=== PATIENT | female | born 1975 ===

== ENCOUNTER 2016-08-21 13:03 | Emergency (ER) | payer MEDICAID ==
[2016-08-21 13:08] VITALS: BMI 22.0
--- NOTE | 2016-08-21 13:43 | C.PDOC ---
History Of Present Illness 41 y/o female presents to ED with complaints of sinus congestion, sore throat and asthma exacerbation for 4 days. Patient has no asthma medication and feels "wheezy and tight". Patient denies fever, chills, N/V/D or any other complaints at this time. Time Seen by Provider: 08/21/16 13:19 Chief Complaint (Nursing): Flu-like Symptoms History Per: Patient History/Exam Limitations: no limitations Onset/Duration Of Symptoms: Days Current Symptoms Are (Timing): Still Present Associated Symptoms: Sore Throat, Nasal Congestion. denies: Fever, Vomiting, Diarrhea Past Medical History Reviewed: Historical Data, Nursing Documentation, Vital Signs Vital Signs: Last Vital Signs Temp 99.0 F 08/21/16 13:08 Pulse 77 08/21/16 13:08 Resp 20 08/21/16 13:08 BP 100/67 08/21/16 13:08 Pulse Ox 99 08/21/16 13:57 - Medical History PMH: Asthma, Depression, Gastritis Surgical History: Tonsillectomy Family History: States: Unknown Family Hx - Social History Hx Tobacco Use: Yes Hx Alcohol Use: No Hx Substance Use: No - Immunization History Hx Influenza Vaccination: Yes Hx Pneumococcal Vaccination: Yes Review Of Systems Except As Marked, All Systems Reviewed And Found Negative. Constitutional: Negative for: Fever, Chills ENT: Positive for: Nose Congestion, Throat Swelling Cardiovascular: Negative for: Chest Pain Respiratory: Positive for: Shortness of Breath, Wheezing Gastrointestinal: Negative for: Nausea, Vomiting, Diarrhea Skin: Negative for: Rash Physical Exam - Physical Exam Appears: Non-toxic, No Acute Distress Skin: Normal Color, Warm Head: Atraumatic, Normacephalic Eye(s): bilateral: Normal Inspection Nose: Other (sinus congestion) Cardiovascular: Rhythm Regular, No Murmur Respiratory: Decreased Breath Sounds (Bilateral Decreased breath sounds), No Rales, No Rhonchi, Wheezing (Bilat occasional wheezing) Gastrointestinal/Abdominal: Soft, No Tenderness, No Guarding, No Rebound Extremity: Normal ROM, Capillary Refill (<2 seconds) Neurological/Psych: Oriented x3, Normal Speech, Normal Cognition ED Course And Treatment O2 Sat by Pulse Oximetry: 99 (RA) Pulse Ox Interpretation: Normal Reevaluation Time: 14:54 Reassessment Condition: Improved Disposition Counseled Patient/Family Regarding: Diagnosis, Need For Followup, Rx Given - Disposition Referrals: Count Includes [facility] [Outside] [facility] [Outside] Disposition: HOME/ ROUTINE Disposition Time: 14:54 Condition: IMPROVED Prescriptions: Albuterol HFA [Ventolin HFA 90 mcg/actuation (8 g)] 1 puff IH Q4 #1 inhaler predniSONE [Prednisone] 60 mg PO DAILY #12 tab Instructions: Asthma (ED), Upper Respiratory Infection (ED) Forms: Work Excuse - Clinical Impression Clinical Impression: URI (upper respiratory infection), Asthma exacerbation - PA / [employer] / Resident Statement MD/DO has reviewed & agrees with the documentation as recorded. MD/DO has examined the patient and agrees with the treatment plan. - Scribe Statement The provider has reviewed the documentation as recorded by the Felicianoibleo Colon All medical record entries made by the Josesito were at my direction and personally dictated by me. I have reviewed the chart and agree that the record accurately reflects my personal performance of the history, physical exam, medical decision making, and the department course for this patient. I have also personally directed, reviewed, and agree with the discharge instructions and disposition.
[2016-08-21] MEDS ORDERED: Albuterol-Ipratrop 3 mg / 0.5 (3 ml) UD ONE (13:49)
[2016-08-21] MEDS: Albuterol-Ipratrop 3 mg / 0.5 (3 ml) UD IH SCH (14:06)
[2016-08-21 15:03] VITALS: BP 128/75; PULSE 79; RESP 18; TEMP 98.8; O2SAT 98
== END 2016-08-21 15:02 | disposition home or self-care (01) ==
LOC: C.ER 13:03
DX: J06.9 Acute upper respiratory infection, unspecified (principal); J45.901 Unspecified asthma with (acute) exacerbation

== ENCOUNTER 2017-12-21 17:49 | Emergency (ER) | payer MEDICAID ==
[2017-12-21 17:49] VITALS: BMI 22.0
[2017-12-21 18:51] VITALS: BP 113/75; PULSE 63; TEMP 98.3; O2SAT 100
--- NOTE | 2017-12-21 19:20 | C.PDOC ---
History Of Present Illness 42 yo female come in for evaluation of left eye redness gradually developed since yesterday. Pt reports, " woke up yesterday and noted my eye is red". Pt admits, day before onset of sx, " I was crying a lot, depressed after phone call". Otherwise, pt denies severe headache, dizziness, visual changes, blurry vision, eye discharge, contact use, denies focal deficits, denies any other active complaints. Ambulate to Ed for evaluation, not in any apparent distress. Time Seen by Provider: 12/21/17 18:57 Chief Complaint (Nursing): Eye Problem History Per: Patient Past Medical History Reviewed: Historical Data, Nursing Documentation, Vital Signs Vital Signs: Last Vital Signs Temp 98.3 F 12/21/17 18:44 Pulse 63 12/21/17 18:44 Resp 18 12/21/17 18:44 BP 113/75 12/21/17 18:44 Pulse Ox 100 12/21/17 18:44 - Medical History PMH: Anxiety, Asthma, Depression, Gastritis Denies: CAD, Cardia Arrhythmia, Cardiac Aneurysm, CHF, Chronic Kidney Disease Surgical History: Tonsillectomy Family History: States: Unknown Family Hx - Social History Hx Tobacco Use: Yes Hx Alcohol Use: Yes Hx Substance Use: No - Immunization History Hx Tetanus Toxoid Vaccination: No Hx Influenza Vaccination: Yes (2018) Hx Pneumococcal Vaccination: Yes Review Of Systems Except As Marked, All Systems Reviewed And Found Negative. Constitutional: Negative for: Fever, Chills Eyes: Positive for: Redness. Negative for: Vision Change, Conjunctivae Inflammation ENT: Negative for: Ear Pain, Ear Discharge, Nose Pain, Nose Discharge, Mouth Swelling, Throat Pain, Throat Swelling Cardiovascular: Negative for: Chest Pain, Palpitations Respiratory: Negative for: Cough, Shortness of Breath, Wheezing Gastrointestinal: Negative for: Nausea, Vomiting, Abdominal Pain, Diarrhea Genitourinary: Negative for: Dysuria, Incontinence Musculoskeletal: Negative for: Neck Pain, Back Pain Skin: Negative for: Rash Neurological: Negative for: Weakness, Numbness, Altered Mental Status, Headache, Dizziness Physical Exam - Physical Exam Appears: Well, Non-toxic, No Acute Distress Skin: Normal Color, Warm, Dry, No Rash Head: Normacephalic Eye(s): bilateral: PERRL, EOMI (no pain or limittaion on extraocular movement B/L), left: Other (subconjuctival hemorrhage from 12 to 5 o'clock, no periorbital edema or ecchymoses.) Ear(s): Bilateral: Normal Nose: No Flaring, No Discharge, No Deformity, No Tenderness Oral Mucosa: Moist Neck: Trachea Midline, No Midline Cervical Tenderness, No Paracervical Tenderness, No Step Off Deformity, Supple Cardiovascular: Rhythm Regular, No Murmur, No JVD Respiratory: No Decreased Breath Sounds, No Accessory Muscle Use, No Stridor, No Wheezing Gastrointestinal/Abdominal: Soft, No Tenderness Extremity: Normal ROM, No Pedal Edema, No Deformity, No Swelling Neurological/Psych: Oriented x3, Normal Speech, Normal Motor, Normal Sensation, Normal Reflexes ED Course And Treatment O2 Sat by Pulse Oximetry: 100 Pulse Ox Interpretation: Normal Progress Note: VA: R 20/100, L 20/20, B/L 20/50 w/o correction. On re-eval, pt is afebrile, hemodynamicaly stable. Non-toxic. ENT: No acute findings. neck: SUpple, (-) JVD, (-) carotid bruits B/L. Left eye: exam c/w subconjuctival hemorrheage over lateral aspect left eye. No periorbital edema or erythema, no pain or limitation on extaocular movement. Lungs: CTA B/L, BS equal B/L. CVS: (+)S1S2, reg. Neurologicaly intact. Pt advised on course of ds. ref. to f/u with PMD, Opht in 1-2 days for re-eval. return to ED if any worsening or new changes. Disposition Counseled Patient/Family Regarding: Diagnosis, Need For Followup - Disposition Referrals: Lambert Terry [Staff Provider] - Disposition: HOME/ ROUTINE Disposition Time: 19:25 Condition: STABLE Additional Instructions: Eye patch for 1 week Follow up with Ophthalmology in 1-2 days for re-evaluation. Return to ED at any time if any worsening or new changes. Instructions: Subconjunctival Hemorrhage Forms: [facility] [facility] (Irish), Work Excuse - Clinical Impression Clinical Impression: Subconjunctival hemorrhage
[2017-12-21 19:41] VITALS: RESP 20
== END 2017-12-21 19:40 | disposition home or self-care (01) ==
LOC: C.ER 17:49
DX: H11.32 Conjunctival hemorrhage, left eye (principal); Z72.0 Tobacco use